=== PATIENT | male | born 1960 | race Caucasian/White ===

== ENCOUNTER 2017-03-23 13:11 | Emergency (ER) | payer MEDICAID, OTHER ==
[~2017-03-23] VITALS: Ht 175.3 cm; Wt 55.8 kg
--- NOTE | 2017-03-23 13:11 | NUR ---
SMITA SALINAS FROM [facility] FOR EVALUATION OF A FALL.
[2017-03-23 13:12] VITALS: BP 134/56
[2017-03-23] MEDS ORDERED: THERA M (13:19)
[2017-03-23] MEDS ORDERED: CARBAMAZEPINE 200 MG TABLET (13:19)
[2017-03-23] MEDS ORDERED: STOOL SOFTENER (13:19)
[2017-03-23] MEDS ORDERED: SIMVASTATIN 40 MG TABLET (13:19)
[2017-03-23] MEDS ORDERED: TRAZODONE 100 MG TABLET (13:19)
[2017-03-23] MEDS ORDERED: [UNRECOGNIZED DRUG - OTHER] (13:19)
[2017-03-23] MEDS ORDERED: ASPIRIN EC 81 MG TABLET (13:19)
[2017-03-23] MEDS ORDERED: POLYETHYLENE GLYCOL 3350 POWD (13:19)
[2017-03-23] MEDS ORDERED: LORAZEPAM 0.5 MG TABLET (13:19)
[2017-03-23] MEDS ORDERED: LORATADINE 10 MG TABLET (13:19)
[2017-03-23] MEDS ORDERED: LORazepam 2 MG/ML VIAL IM ONE ×2 (13:55→15:45)
--- NOTE | 2017-03-23 14:39 | NUR ---
Patient transferred to bed 11 for further care. RN evaluating patient at bedside.
[2017-03-23] MEDS ORDERED: HALOPERIDOL IM 5 MG/ML VIAL IM ONE (14:45)
--- NOTE | 2017-03-23 14:47 | NUR ---
56/M daniel from [facility] for evaluation of head injury to back of head. Pt slipped and fell in bathroom and hit head on mirror. Laceration to back of head noted, no active bleeding. Denies loss of conciousness. Caregiver at bedside. Pt awake, non verbal, mentally delayed. Normal baseline per caregiver. Pt on 4 point restraints, not combative but patient flight risk and gets out of bed.
--- NOTE | 2017-03-23 14:47 | NUR ---
56/M daniel from [facility] for evaluation of head injury to back of head. Pt slipped and fell in bathroom and hit head on mirror. Laceration to back of head noted, no active bleeding. Denies loss of conciousness. Caregiver at bedside. Pt awake, non verbal, mentally delayed. Normal baseline per caregiver. Pt on 4 point restraints, not combative but patient flight risk and gets out of bed.
[2017-03-23] MEDS ORDERED: HALOPERIDOL IM 5 MG/ML VIAL ONE (14:50)
--- NOTE | 2017-03-23 15:00 | NUR ---
Pt rocking back and forth in bed. Unable to sit still. Dr. Lynch made aware.
--- NOTE | 2017-03-23 15:43 | NUR ---
Pt continues to thrash in bed. Pt rocking back and forth in bed. Pt has uncontrolled body movement, with restraints in place. recreational counselor at bedside. No improvement in patient's behavior since medication administration. Dr. Lynch made aware.
--- NOTE | 2017-03-23 16:38 | NUR ---
Report given to Felicia ELIAS.
--- NOTE | 2017-03-23 16:44 | NUR ---
Pt taken to CT via [facility].
[2017-03-23 17:40] VITALS: BP 139/90
--- NOTE | 2017-03-23 17:40 | NUR ---
Patient discharged with v/s stable. Written and verbal after care instructions given and explained. Patient verbalized understanding. Ambulatory with steady gait. All questions addressed prior to discharge. Advised to follow up with PMD.
== END 2017-03-23 17:40 | disposition home or self-care (01) ==
LOC: MED 13:11
DX: S01.91XA Laceration without foreign body of unspecified part of head, initial encounter (principal); F84.0 Autistic disorder; W18.30XA Fall on same level, unspecified, initial encounter; Y93.89 Activity, other specified; Y92.89 Other specified places as the place of occurrence of the external cause; Y99.8 Other external cause status
CPT/HCPCS: 70450; 96372; 99284; J1630; J2060